=== PATIENT | male | born 1990 | race Caucasian/White ===

== ENCOUNTER 2018-02-07 21:59 | Emergency (ER) | payer SELFPAY ==
[2018-02-07] MEDS ORDERED: ACYCLOVIR 200 MG CAPSULE PO ONE (22:16)
--- NOTE | 2018-02-07 22:18 | Emergency Department Record ---
History of Present Illness - General Chief complaint: Rash Stated complaint: RASH LEFT CHEST/ARMPIT Time Seen by Provider: 02/07/18 22:12 Source: Patient Mode of Arrival: Ambulatory Limitations: No limitations - History of Present Illness Initial comments: 27 yo male presents with a rash that wraps around his left chest. The onset was 2 days ago. It started as a few small patches and now it is a band with larger patches. It is uncomfortable. No fevers. The chest is painful. NO NVD. He had chicken pox as a child. MD complaint: Rash -: Days(s) (2) Location: Chest Severity: Moderate Quality: Aching Consistency: Constant Improves with: None Worsens with: Palpation Context: None Associated symptoms: Myalgias, Other Treatments Prior to Arrival: None - Related Data Previous Rx's Medication Instructions Recorded Acyclovir 400 mg PO 5XD #35 tablet 02/07/18 Allergies Allergy/AdvReac Type Severity Reaction Status Date / Time No Known Drug Allergies Allergy Verified 02/07/18 22:13 Review of Systems Constitutional: Denies: Chills, Fever, Malaise, Weakness Eyes: Denies: Eye discharge ENT: Denies: Congestion, Throat pain Respiratory: Denies: Cough, Dyspnea, Hemoptysis Cardiovascular: Reports: As per HPI, Chest pain Endocrine: Denies: Fatigue Gastrointestinal: Denies: Abdominal pain, Diarrhea, Nausea, Vomiting Genitourinary: Denies: Dysuria, Frequency, Hematuria Musculoskeletal: Denies: Arthralgia, Back pain, Myalgia Skin: Reports: As per HPI, Rash. Denies: Bruising, Change in color Neurological: Denies: Numbness, Vertigo, Weakness Psychiatric: Denies: Anxiety Physical Exam - General General Appearance: Alert, Oriented x3, Cooperative, No acute distress Limitations: No limitations - Head Head exam: Atraumatic, Normal inspection - Eye Eye exam: Normal appearance. negative: Conjunctival injection - ENT ENT exam: Normal exam Ear exam: Normal external inspection Nasal Exam: Normal inspection Mouth exam: Normal external inspection - Neck Neck exam: Normal inspection - Respiratory Respiratory exam: Normal lung sounds bilaterally. negative: Respiratory distress - Cardiovascular Cardiovascular Exam: Regular rate, Normal rhythm, Normal heart sounds Peripheral Pulses: 2+: Radial (R), Radial (L) - GI/Abdominal GI/Abdominal exam: Soft. negative: Tenderness - Rectal Rectal exam: Deferred - exam: Deferred - Extremities Extremities exam: Normal inspection - Back Back exam: Reports: Other (Rash). Denies: Normal inspection Image of Body Front/Back: 1 - macular papular rash with a few vesicles 2 - macular papular with some vesicles consistent with shingles - Neurological Neurological exam: Alert, Oriented X3 - Psychiatric Psychiatric exam: Normal affect, Normal mood - Skin Skin exam: Rash Course Vital Signs 02/07/18 22:07 Temperature 99.2 F Pulse Rate [ 102 H Pulse Ox Probe] Respiratory 18 Rate Blood Pressure 151/90 [Right Arm] Pulse Ox 97 - Reevaluation(s) Reevaluation #1: 02/07/18 22:16 The rash is consistent with shingles RX provided Precautions provided Disposition Disposition: Discharge Clinical Impression: Shingles Qualifiers: Herpes zoster complications: without complications Qualified Code(s): B02.9 - Zoster without complications Disposition: Home, Self-Care Condition: (1) Good Instructions: Shingles (ED) Additional Instructions: Keep the area covered if around others Follow up tomorrow with your doctor as scheduled Take the Acyclovir as directed Prescriptions: Acyclovir 400 mg PO 5XD #35 tablet Forms: Patient Portal Access Time of Disposition: 22:27 Quality - Quality Measures Quality Measures: N/A - Blood Pressure Screening Does Patient Have Any of the Following: No Blood Pressure Classification: Hypertensive Reading Systolic Measurement: 151 Diastolic Measurement: 90 Screening for High Blood Pressure: < Pre-Hypertensive BP, F/U Documented > [ [id number]] Pre-Hypertensive Follow-up Interventions: Referral to alternative/primary care provider.
== END 2018-02-07 22:43 | disposition home or self-care (01) ==
LOC: ER 21:59
DX: B02.9 Zoster without complications (principal)
CPT/HCPCS: 99282